=== PATIENT | male | born 1945 | race Caucasian/White ===

== ENCOUNTER 2017-03-01 08:47 | Emergency (ER) | payer MEDICARE, OTHER ==
[~2017-03-01] VITALS: Ht 55.9 cm; Wt 96.0 kg
[~2017-03-01 08:47] MED LIST: LORA-441 PO
[2017-03-01 08:48] VITALS: Ht 55.9 cm; Wt 96.0 kg
[2017-03-01] MEDS ORDERED: BUPIVACAINE 0.25% (MPF) 10 ML 10 ML VIAL INJ ONE (09:30)
[2017-03-01] MEDS ORDERED: SOD CHLORIDE 0.9% 1,000 ML IV ONE (10:30)
--- NOTE | 2017-03-01 11:34 | RADRPT ---
PROCEDURE: CT Brain without contrast. CLINICAL INDICATION: Confusion TECHNIQUE: CT scan of the brain was performed on a multidetector high-resolution CT scan. Axial im aging was obtained of the brain without contrast administration. Coronal and sagittal reformatted i mages were obtained from the axial source images. Standard CT scan of the head without contrast prot ocols were performed. The total exam CTDI equals 43.58. mGy and the total exam DLP equals 720.23 mGy-cm. One or more of the following dose reduction techniques were used: - Automated exposure control. - Adjustment of the mA and/or kV according to patient size. Use of iterative reconstruction technique. COMPARISON: None. FINDINGS: The ventricular system and peripheral CSF spaces are proportionate prominent consistent with moderat e generalized cerebral volume loss. Negative for intracranial masses hemorrhages or midline shift. There is mild periventricular deep white matter changes that is nonspecific and consistent with chr onic microvascular ischemic disease. the paranasal sinuses and mastoids imaged are unremarkable. T he bones and calvarium are intact. IMPRESSION: 1. Moderate generalized cerebral volume loss and mild nonspecific chronic microvascular ischemic di sease. 2. Negative for intracranial masses hemorrhages or midline shift. RPTAT:AAJJ Physician Yannick Date Time Electronically viewed and signed by Physician Yannick on 03/01/2017 11:34 BM/
--- NOTE | 2017-03-01 11:56 | RADRPT ---
PROCEDURE: Chest x-ray CLINICAL INDICATION: Altered mental status TECHNIQUE: Chest single view COMPARISON: None FINDINGS: There is mildly enlarged in size. There is mild atherosclerotic aortic calcification. The pulmonar y vessels are normal in caliber. The lungs are clear. The costophrenic angles are sharp. The visu alized bony thorax is unremarkable. IMPRESSION: No acute cardiopulmonary disease. Mild cardiomegaly and atherosclerotic aortic calcification RPTAT: HH .Farrukh Jarquin MD, MD Date Time Electronically viewed and signed by .Farrukh Jarquin MD, on 03/01/2017 11:55 .W/
[2017-03-01 13:10] LABS: BASOPHILS % 0.6 % (0.0-2.0); EOSINOPHILS # 0.1 10^3/ul (0.0-0.5); EOSINOPHILS % 1.9 % (0.0-7.0); HEMATOCRIT 38.4 % (42.0-52.0); HEMOGLOBIN 12.9 g/dl (14.0-18.0); LYMPHOCYTES # 1.2 10^3/ul (0.8-2.9); LYMPHOCYTES % 22.4 % (15.0-51.0); MEAN CORPUSCULAR HEMOGLOBIN 31.1 pg (29.0-33.0); MEAN CORPUSCULAR HGB CONC 33.6 g/dl (32.0-37.0); MEAN CORPUSCULAR VOLUME 92.5 fl (82.0-101.0); MEAN PLATELET VOLUME 9.9 fl (7.4-10.4); MONOCYTE # 0.4 10^3/ul (0.3-0.9); MONOCYTES % 7.8 % (0.0-11.0); NEUTROPHIL # 3.6 10^3/ul (1.6-7.5); NEUTROPHILS % 66.9 % (39.0-77.0); PLATELET COUNT 256 10^3/UL (140-415); RED BLOOD COUNT 4.15 10^6/ul (4.70-6.10); RED CELL DISTRIBUTION WIDTH 15.8 % (11.5-14.5); WHITE BLOOD COUNT 5.4 10^3/ul (4.8-10.8)
[2017-03-01 13:39] LABS: ALBUMIN 3.9 g/dl (3.3-4.9); ALBUMIN/GLOBULIN RATIO 1.21; BILIRUBIN,INDIRECT 0.4 mg/dl (0-1.1); BILIRUBIN,TOTAL 0.4 mg/dl (0.2-1.3); CALCIUM 9.2 mg/dl (8.4-10.2); CREATININE 0.71 mg/dl (0.61-1.24); POTASSIUM 3.8 mmol/L (3.5-5.1); TOTAL PROTEIN 7.1 g/dl (6.1-8.1)
[2017-03-01 13:50] LABS: TROPONIN-I 0.019 ng/ml (0.00-0.12)
[2017-03-01 14:34] LABS: ADD UMIC NO; UR ASCORBIC ACID NEGATIVE (NEGATIVE); UR BILIRUBIN (Dip) NEGATIVE (NEGATIVE); UR BLOOD (Dip) NEGATIVE (NEGATIVE); UR CLARITY CLEAR (CLEAR); UR COLOR STRAW (YELLOW); UR GLUCOSE (Dip) NEGATIVE (NEGATIVE); UR KETONES (Dip) NEGATIVE (NEGATIVE); UR LEUKOCYTE ESTERASE (Dip) NEGATIVE Leu/ul (NEGATIVE); UR NITRITE (Dip) NEGATIVE (NEGATIVE); UR SPECIFIC GRAVITY (Dip) 1.005 (1.003-1.030); UR TOTAL PROTEIN (Dip) NEGATIVE (NEGATIVE); UR UROBILINOGEN (Dip) NEGATIVE (NEGATIVE)
[2017-03-01] MEDS ORDERED: KETOROLAC 60 MG INJ IM STA (15:01)
[2017-03-01] MEDS ORDERED: CYCL-319 PO (15:03)
[2017-03-01] MEDS ORDERED: IBUP-1542 PO (15:03)
--- NOTE | 2017-03-01 16:23 | ERD ---
ER Documentation Chief Complaint Date/Time DATE: 03/01/17 TIME: 16:20 Chief Complaint left leg pain x 3 days HPI 72-year-old male complaining of left buttock pain that radiates to the back of his left leg 3 days. Pain is severe and constant, he can walk. Patient denies history of back pain or sciatica. Denies recent fall or other injuries. Denies heavy lifting. Denies saddle paresthesia. Denies bowel bladder dysfunction. Patient also denies any prior medical history. ROS All systems reviewed and are negative except as per history of present illness. Medications Home Meds Active Scripts Cyclobenzaprine Hcl* (Cyclobenzaprine Hcl*) 10 Mg Tablet, 10 MG PO TID, #15 TAB Prov:FELIX WILDER. VISUALIZER 03/01/17 Ibuprofen* (Motrin*) 600 Mg Tab, 600 MG PO Q6H Y for PAIN AND OR ELEVATED TEMP, #30 TAB Prov:FELIX WILDER. ALBER 03/01/17 Lorazepam* (Ativan*) 0.5 Mg Tablet, 0.5 MG PO Q8, #6 TAB Prov:ROYA MONIQUE DO 01/19/16 Allergies Allergies: Coded Allergies: No Known Allergy (Unverified , 01/18/16) PMhx/Soc Medical and Surgical Hx: pt denies Medical Hx History of Surgery: No Anesthesia Reaction: No Hx Neurological Disorder: No Hx Respiratory Disorders: No Hx Cardiac Disorders: No Hx Miscellaneous Medical Probl: Yes (DEPRESSION, ANXIETY, DM) Hx Alcohol Use: No Hx Substance Use: No Hx Tobacco Use: Yes Smoking Status: Current every day smoker Physical Exam Vitals Vital Signs Date Time Temp Pulse Resp B/P Pulse Ox O2 Delivery O2 Flow Rate FiO2 03/01/17 08:48 988.1 120 20 158/93 100 Physical Exam General: Well-developed, well-nourished, conscious and coherent, in no distress Skin: Warm and dry without rash, good texture and turgor Head: Normocephalic without evidence of trauma Eyes: Sclera and conjunctivae normal; pupils equal, round, and reactive to light; extraocular movements are intact Chest: Normal AP diameter. Good expansion without retractions. Nontender. Lungs are clear to auscultate bilaterally with good tidal volume Heart: Regular rate and rhythm. No murmur, rub, or gallops heard Abdomen: Soft and nontender without masses, guarding, or rebound. Bowel sounds are active. No hepatosplenomegaly Back: Without spinal or CVA tenderness. Left buttock tenderness with muscle spasm. Extremities: Full range of motion. Good strength bilaterally. No clubbing, cyanosis, or edema. Peripheral pulses are intact. Sensation intact Neuro: Alert and oriented 3, GCS 15. Cranial nerves grossly intact. Motor and sensory exams nonfocal. Moves all extremities. Speech clear. Gait abnormal due to pain. Patient appears to be confused as to his history. Result Diagram: 03/01/17 1255 03/01/17 1255 Results 24 hrs Laboratory Tests Test 03/01/17 12:55 03/01/17 14:00 White Blood Count 5.410^3/ul Red Blood Count 4.1510^6/ul Hemoglobin 12.9g/dl Hematocrit 38.4% Mean Corpuscular Volume 92.5fl Mean Corpuscular Hemoglobin 31.1pg Mean Corpuscular Hemoglobin Concent 33.6g/dl Red Cell Distribution Width 15.8% Platelet Count 82591^3/UL Mean Platelet Volume 9.9fl Neutrophils % 66.9% Lymphocytes % 22.4% Monocytes % 7.8% Eosinophils % 1.9% Basophils % 0.6% Nucleated Red Blood Cells % 0.0/100WBC Neutrophils # 3.610^3/ul Lymphocytes # 1.210^3/ul Monocytes # 0.410^3/ul Eosinophils # 0.110^3/ul Basophils # 0.010^3/ul Nucleated Red Blood Cells # 0.010^3/ul Sodium Level 141mmol/L Potassium Level 3.8mmol/L Chloride Level 101mmol/L Carbon Dioxide Level 27mmol/L Anion Gap 17 Blood Urea Nitrogen 7mg/dl Creatinine 0.71mg/dl Glucose Level 95mg/dl Calcium Level 9.2mg/dl Total Bilirubin 0.4mg/dl Direct Bilirubin 0.00mg/dl Indirect Bilirubin 0.4mg/dl Aspartate Amino Transf (AST/SGOT) 21IU/L Alanine Aminotransferase (ALT/SGPT) 25IU/L Alkaline Phosphatase 61IU/L Troponin I 0.019ng/ml Total Protein 7.1g/dl Albumin 3.9g/dl Globulin 3.20g/dl Albumin/Globulin Ratio 1.21 Urine Color STRAW Urine Clarity CLEAR Urine pH 7.0 Urine Specific [place] 1.005 Urine Ketones NEGATIVEmg/dL Urine Nitrite NEGATIVEmg/dL Urine Bilirubin NEGATIVEmg/dL Urine Urobilinogen NEGATIVEmg/dL Urine Leukocyte Esterase NEGATIVELeu/ul Urine Hemoglobin NEGATIVEmg/dL Urine Glucose NEGATIVEmg/dL Urine Total Protein NEGATIVEmg/dl Current Medications Medications (Trade) Dose Ordered Sig/Nayan Route PRN Reason Start Time Stop Time Status Last Admin Dose Admin Bupivacaine HCl 10 ml 10 ml ONCE ONCE INJ 03/01/17 09:30 03/01/17 09:31 DC Sodium Chloride (NS) 1,000 ml @ 1,000 mls/hr Q1H ONCE IV 03/01/17 10:30 03/01/17 11:29 DC 03/01/17 10:33 Ketorolac Tromethamine (Toradol) 60 mg ONCE STAT IM 03/01/17 15:01 03/01/17 15:02 DC 03/01/17 15:17 Lorazepam (Ativan) 1 mg ONCE ONCE PO 03/01/17 16:30 03/01/17 16:31 DC PROCEDURE: Chest x-ray CLINICAL INDICATION: Altered mental status TECHNIQUE: Chest single view COMPARISON: None FINDINGS: There is mildly enlarged in size. There is mild atherosclerotic aortic calcification. The pulmonary vessels are normal in caliber. The lungs are clear. The costophrenic angles are sharp. The visualized bony thorax is unremarkable. IMPRESSION: No acute cardiopulmonary disease. Mild cardiomegaly and atherosclerotic aortic calcification RPTAT: HH .Farrukh Jarquin MD, Date Time Electronically viewed and signed by .Farrukh Jarquin MD, MD on 03/01/2017 11:55 .W/ CC: FELIX WILDER NP PROCEDURE: CT Brain without contrast. CLINICAL INDICATION: Confusion TECHNIQUE: CT scan of the brain was performed on a multidetector high- resolution CT scan. Axial imaging was obtained of the brain without contrast administration. Coronal and sagittal reformatted images were obtained from the axial source images. Standard CT scan of the head without contrast protocols were performed. The total exam CTDI equals 43.58. mGy and the total exam DLP equals 720.23 mGy- cm. One or more of the following dose reduction techniques were used: - Automated exposure control. - Adjustment of the mA and/or kV according to patient size. Use of iterative reconstruction technique. COMPARISON: None. FINDINGS: The ventricular system and peripheral CSF spaces are proportionate prominent consistent with moderate generalized cerebral volume loss. Negative for intracranial masses hemorrhages or midline shift. There is mild periventricular deep white matter changes that is nonspecific and consistent with chronic microvascular ischemic disease. the paranasal sinuses and mastoids imaged are unremarkable. The bones and calvarium are intact. IMPRESSION: 1. Moderate generalized cerebral volume loss and mild nonspecific chronic microvascular ischemic disease. 2. Negative for intracranial masses hemorrhages or midline shift. RPTAT:AAJJ Physician Yannick Date Time Electronically viewed and signed by Shola Uriarte Physician on 03/01/2017 11:34 BM/ CC: FELIX WILDER VISUALIZER Procedures/MDM 72-year-old male present ED with left lower back pain that radiates to the left leg. Patient appeared to have sciatica, likely secondary to piriformis syndrome. Patient does not have any midline spinal tenderness. I doubt spinal fracture, subluxation, or disc herniation. I doubt spinal epidural abscess, cauda equina syndrome. Procedure note: Trigger point injection Trigger point injection performed by me. 10 mL of bupivacaine is injected into left gluteal region. Total number muscle groups injected: 1. Patient reports improvement of pain after the trigger point injection. After short time, patient again complained of pain. Toradol was given to the patient. Even though patient still complains of pain after Toradol, he was noted to be ambulating without difficulty. Although patient denies any medical history, he did carry a bottle of metformin in his pocket that prescribed to him. Patient also appeared to be very confused as to where he is living. He gave multiple different answers at different times. I discussed patient was Dr. Duran who recommended complete workup to rule out any acute causes confusion. CBC, CMP, troponin and UA are all negative. Chest x-ray showed no acute cardiopulmonary disease, mild cardiomegaly and atherosclerotic aortic calcification. CT head without IV contrast showed moderate generalized cerebral volume loss and mild nonspecific chronic microvascular ischemic disease. No intracranial masses, hemorrhage, or midline shift is noted. EKG: Normal sinus rhythm rate 74 bpm, normal axis. No ST segment elevation or depression. No ectopic beats. No QT prolongation. No other EKG abnormalities. EKG read by Dr. Duran. Patient does not have any acute conditions that warrant admission. Patient appeared to be disheveled. I am concerned that he may be homeless. Because of his confusion, I do not feel comfortable to discharge him without a placement. aged or disabled care worker was involved. The social workers was eventually able to locate patient's daughter, who said will come pick him up later this evening. Patient will be discharged into the care of his daughter. Departure Diagnosis: Primary Impression: Sciatica Laterality: left Qualified Code: M54.32 - Sciatica of left side Additional Impression: Confused Condition: Stable Patient Instructions: Understanding Sciatica [facility] Usted se arcos hecho un examen mdico de control que le indica que no est en marin condicin que requiera tratamiento urgente en el Departamento de Emergencia. Un estudio ms profundo y el tratamiento de ugarte condicin pueden esperar sin ningn riesgo hasta que usted sea atendida/o en el consultorio de ugarte mdico o marin cl maricarmen. Es responsabilidad suya arreglar marin kristel para el seguimiento del edgardo. MANEJO DE CONDICIONES NO URGENTES EN EL FUTURO 1) Si usted tiene un mdico de atencin primaria: Usted debera llamar a ugarte mdico de atencin primaria antes de venir al departamento de emergencia. Despus de las horas de consultorio, ugarte doctor o ugarte asociado/a est disponible por telfono. El mdico o enfermero de adi en el servicio telefnico puede asesorarle por damion medio para atender el problema, o edgardo contrario se puede programar marin kristel. 2) Si usted no tiene un mdico de atencin primaria: Llame al mdico o clnica de referencia que aparece abajo jinny las horas de consultorio para hacer marin kristel para que le vean. CLINICAS: [place] [address] [phone] [facility] [phone] [address] [facility] [phone] [address] [place] [address] [phone] [place] [address] [phone] [facility] [phone] [address] Additional Instructions: Llame al doctor MAANA y [place] marin KRISTEL PARA DENTRO DE 2-3 CHIRINOS.Dgale a la secretaria que nosotros le instruimos hacer esta kristel.Avise o llame si ugarte condicin se empeora antes de la kristel. Regresa aqui si peor o no mejor. FELIX WILDER. ALBER Mar 01, 2017 16:23
[2017-03-01] MEDS ORDERED: LORAZEPAM 1 MG TAB PO ONE (16:30)
[2017-03-01 18:40] VITALS: BP 157/92; PULSE 66; RESP 19; TEMP 97.9
== END 2017-03-01 18:40 | disposition home or self-care (01) ==
LOC: FTE 08:47
DX: M54.32 Sciatica, left side (principal); R41.0 Disorientation, unspecified; F17.210 Nicotine dependence, cigarettes, uncomplicated; E11.9 Type 2 diabetes mellitus without complications
CPT/HCPCS: 70450; 71010; 80053; 81003; 84484; 85025; 93005; J1885; J7030; 36415; 96372

== ENCOUNTER 2017-08-21 07:25 | Emergency (ER) | END 2017-08-21 10:45 | disposition home or self-care (01) ==

== ENCOUNTER 2019-01-12 13:56 | Emergency (ER) | payer MEDICARE, OTHER ==
[~2019-01-12] VITALS: Ht 182.9 cm; Wt 87.1 kg
[~2019-01-12 13:56] MED LIST changes: +CYCL10TA7 PO; +IBUP-1542 PO; +LORA1TAB PO; +RANI150T35 PO
[2019-01-12 14:12] VITALS: BP 158/75; PULSE 58; RESP 16; Ht 182.9 cm; Wt 87.1 kg
[2019-01-12] MEDS ORDERED: LORA-441 PO (15:35)
--- NOTE | 2019-01-12 15:38 | ERD ---
ER Documentation Chief Complaint Chief Complaint LACK OF APPETITE, HAS NOT EATEN IN 4-DAYS ROS All systems reviewed and are negative except as per history of present illness. Medications Home Meds Active Scripts Lorazepam* (Ativan*) 0.5 Mg Tablet, 0.5 MG PO BID PRN for anxiety attack, #10 TAB Prov:BERNIE MULLER DO 01/12/19 Lorazepam* (Lorazepam*) 1 Mg Tablet, 1 MG PO Q8, #12 TAB Prov:ROYA MONIQUE DO 08/21/17 Ranitidine Hcl* (Zantac*) 150 Mg Tablet, 150 MG PO BID PRN for EPIGASTRIC PAIN, #30 TAB Prov:ROYA MONIQUE DO 08/21/17 Cyclobenzaprine Hcl* (Cyclobenzaprine Hcl*) 10 Mg Tablet, 10 MG PO TID, #15 TAB Prov:FELIX WILDER. BATCH TESTER 03/01/17 Ibuprofen* (Motrin*) 600 Mg Tab, 600 MG PO Q6H PRN for PAIN AND OR ELEVATED TEMP, #30 TAB Prov:FELIX WILDER. BATCH TESTER 03/01/17 Lorazepam* (Ativan*) 0.5 Mg Tablet, 0.5 MG PO Q8, #6 TAB Prov:ROYA MONIQUE 01/19/16 Allergies Allergies: Coded Allergies: No Known Allergy (Unverified , 01/18/16) PMhx/Soc History of Surgery: No Anesthesia Reaction: No Hx Neurological Disorder: No Hx Respiratory Disorders: No Hx Cardiac Disorders: No Hx Miscellaneous Medical Probl: Yes (DEPRESSION, ANXIETY, DM) Hx Alcohol Use: No Hx Substance Use: No Hx Tobacco Use: Yes Smoking Status: Current every day smoker Physical Exam Vitals Vital Signs Date Temp Pulse Resp B/P (MAP) Pulse Ox O2 O2 Flow FiO2 Time Delivery Rate 01/12/19 98.3 58 16 158/75 99 14:12 (102) Physical Exam Const: No acute distress Head: Atraumatic Eyes: Normal Conjunctiva ENT: Normal External Ears, Nose and Mouth. Neck: Full range of motion. No meningismus. Resp: Clear to auscultation bilaterally Cardio: Regular rate and rhythm, no murmurs Abd: Soft, non tender, non distended. Normal bowel sounds Skin: No petechiae or rashes Back: No midline or flank tenderness Ext: No cyanosis, or edema Neur: Awake and alert Psych: Normal Mood and Affect Departure Diagnosis: Primary Impression: Decrease in appetite Condition: Fair Patient Instructions: Anxiety Reaction Referrals: [facility] YOU HAVE RECEIVED A MEDICAL SCREENING EXAM AND THE RESULTS INDICATE THAT YOU DO NOT HAVE A CONDITION THAT REQUIRES URGENT TREATMENT IN THE EMERGENCY DEPARTMENT. FURTHER EVALUATION AND TREATMENT OF YOUR CONDITION CAN WAIT UNTIL YOU ARE SEEN IN YOUR DOCTORS OFFICE WITHIN THE NEXT 1-2 DAYS. IT IS YOUR RESPONSIBILITY TO MAKE AN APPOINTMENT FOR FOLOW-UP CARE. IF YOU HAVE A PRIMARY DOCTOR --you should call your primary doctor and schedule an appointment IF YOU DO NOT HAVE A PRIMARY DOCTOR YOU CAN CALL OUR PHYSICIAN REFERRAL HOTLINE AT IF YOU CAN NOT AFFORD TO SEE A PHYSICIAN YOU CAN CHOSE FROM THE FOLLOWING [facility] [address] [facility] [address] [facility] [facility]. [facility] [address] [address] [facility] [facility]. [facility] [address] [facility] [address] [facility]. [facility] [address] [facility] [facility] [address] Additional Instructions: Call your primary care doctor TOMORROW for an appointment during the next 1-2 days.See the doctor sooner or return here if your condition worsens before your appointment time. BERNIE MULLER DO Jan 12, 2019 15:38
== END 2019-01-12 16:04 | disposition home or self-care (01) ==
LOC: FTE 13:56
DX: R63.0 Anorexia (principal); E11.9 Type 2 diabetes mellitus without complications; F17.210 Nicotine dependence, cigarettes, uncomplicated; R53.1 Weakness